=== PATIENT | female | born 1950 | race Caucasian/White ===

== ENCOUNTER → 2019-09-20 10:03 | Outpatient (BNVA) | payer MEDICARE, OTHER, SELFPAY | PROVIDERS: Family Provider Nurse Practitioner Family; PCP Nurse Practitioner; Visit Provider Nurse Practitioner | DX: G62.9 Polyneuropathy, unspecified (principal); I10 Essential (primary) hypertension; M19.079 Primary osteoarthritis, unspecified ankle and foot; E55.9 Vitamin D deficiency, unspecified; Z87.898 Personal history of other specified conditions; E03.9 Hypothyroidism, unspecified; E78.2 Mixed hyperlipidemia | CPT/HCPCS: 80053; 80061; 82306; 84443 ==

== ENCOUNTER → 2020-03-09 09:46 | Outpatient (BNVA) | payer MEDICARE, OTHER, SELFPAY | PROVIDERS: Family Provider Nurse Practitioner Family; PCP Nurse Practitioner; Visit Provider Nurse Practitioner | DX: E03.9 Hypothyroidism, unspecified (principal); E55.9 Vitamin D deficiency, unspecified; E78.2 Mixed hyperlipidemia | CPT/HCPCS: 80053; 80061; 82306; 84443; 85025 ==

== ENCOUNTER 2020-03-16 07:48 | Outpatient (CLI) | payer MEDICARE, OTHER, SELFPAY ==
--- NOTE | 2020-03-16 07:57 | MM_ITS ---
WS: [id number] BILATERAL DIGITAL SCREENING MAMMOGRAPHY WITH CAD CLINICAL INFORMATION: SCREENING HISTORY: Screening mammogram. No current complaints. COMPARISON: TECHNIQUE: Bilateral CC and MLO views. FINDINGS: Scattered fibroglandular densities bilaterally. No suspicious focal mass, asymmetry, calcifications, or architectural distortion. No evidence of malignancy. Vascular calcification. A few punctate calcif ications. MM/[place] [id number] IMPRESSION: BI-RADS: 2-Benign FOLLOW UP: 1 Year Follow-up Recommend return to annual screening mammography.
== END 2020-03-16 07:49 | disposition home or self-care (01) ==
LOC: RADSHAW 07:52
PROVIDERS: PCP Nurse Practitioner; Visit Provider Nurse Practitioner
DX: Z12.31 Encounter for screening mammogram for malignant neoplasm of breast (principal)
CPT/HCPCS: 77067

== ENCOUNTER → 2020-08-07 08:29 | Outpatient (BNVA) | payer MEDICARE, OTHER, SELFPAY | PROVIDERS: PCP Nurse Practitioner; Visit Provider Nurse Practitioner | DX: E03.9 Hypothyroidism, unspecified (principal); E78.2 Mixed hyperlipidemia; E55.9 Vitamin D deficiency, unspecified | CPT/HCPCS: 80053; 80061; 82306; 84443 ==

== ENCOUNTER → 2021-02-18 09:41 | Outpatient (BNVA) | payer MEDICARE, OTHER, SELFPAY | PROVIDERS: PCP Nurse Practitioner; Visit Provider Nurse Practitioner | DX: I10 Essential (primary) hypertension (principal); E03.9 Hypothyroidism, unspecified; E55.9 Vitamin D deficiency, unspecified; G62.9 Polyneuropathy, unspecified; M19.079 Primary osteoarthritis, unspecified ankle and foot; Z23 Encounter for immunization; E78.2 Mixed hyperlipidemia | CPT/HCPCS: 80053; 80061; 81000; 82306; 84443; 85025 ==

== ENCOUNTER → 2021-09-27 11:26 | Outpatient (BNVA) | payer MEDICARE, SELFPAY | PROVIDERS: PCP Nurse Practitioner; Visit Provider Nurse Practitioner | DX: M19.079 Primary osteoarthritis, unspecified ankle and foot (principal); G62.9 Polyneuropathy, unspecified; E55.9 Vitamin D deficiency, unspecified; I10 Essential (primary) hypertension; J45.909 Unspecified asthma, uncomplicated; E03.9 Hypothyroidism, unspecified | CPT/HCPCS: 80053; 80061; 84443; 85025 ==

== ENCOUNTER → 2022-05-10 09:25 | Outpatient (BNVA) | payer MEDICARE, OTHER, SELFPAY | PROVIDERS: PCP Nurse Practitioner; Visit Provider Nurse Practitioner | DX: M10.9 Gout, unspecified (principal); E03.9 Hypothyroidism, unspecified; E78.2 Mixed hyperlipidemia; E55.9 Vitamin D deficiency, unspecified; M19.079 Primary osteoarthritis, unspecified ankle and foot | CPT/HCPCS: 80053; 80061; 82306; 84443; 84550; 85025; 85651; 86140 ==

== ENCOUNTER 2022-06-09 12:10 | Outpatient (CLI) | payer MEDICARE, SELFPAY ==
--- NOTE | 2022-06-09 12:16 | MM_ITS ---
WS: [email or web address] BILATERAL SCREENING DIGITAL TOMOSYNTHESIS MAMMOGRAM WITH CAD HISTORY: Screening. COMPARISON: 03/16/2020 and 06/15/2018 Bilateral CC and MLO views with tomosynthesis and synthetic mammography submitted. Computer aided det ection analyzed. Breast composition: There are scattered areas of fibroglandular density. No suspicious masses, microc alcifications or architectural distortion. MM/[place] [id number] IMPRESSION: BI-RADS: 1-Negative FOLLOW UP: 1 Year Follow-up
--- NOTE | 2022-06-09 13:30 | XR_ITS ---
WS: [email or web address] SCREENING DEXA SCAN [facility] CLINICAL INFORMATION: Z78.0 - Asymptomatic menopausal state COMPARISON: None. FINDINGS: The L1-L4 bone mineral density measures 1.174 g/cm2. This corresponds to a T score score of -0.1 and Z score of 0.7. Left femoral neck bone mineral density measures 0.987 g/cm2. This corresponds to a T score of -0.2 an d Z score of 0.7. Right femoral neck bone mineral density measures 0.946 g/cm2. This corresponds to a T score -0.5of an d Z score of 0.4. Mean femoral neck bone mineral density measures 0.967 g/cm2. This corresponds to a T score of -0.3 an d Z score of 0.5. XR/XR DEXA axial skeleton* [id number] IMPRESSION: Normal bone mineralization. Patient's FRAX calculated 10 year probability for major osteoporotic fracture i s 7.9 % and osteoporotic hip fracture is 0.7%.
== END 2022-06-09 12:11 | disposition home or self-care (01) ==
LOC: RAD 12:10
PROVIDERS: PCP Nurse Practitioner; Visit Provider Nurse Practitioner
DX: Z12.31 Encounter for screening mammogram for malignant neoplasm of breast (principal); Z13.820 Encounter for screening for osteoporosis; Z78.0 Asymptomatic menopausal state
CPT/HCPCS: 77063; 77067; 77080; 80053; 80061; 82306; 84443; 84550; 85025; 85651; 86140

== ENCOUNTER 2022-07-08 08:29 | Outpatient (CLI) | payer MEDICARE, SELFPAY ==
--- NOTE | 2022-07-08 08:45 | USCV_ITS ---
Rowan Coleman Age: 71 Gender: F : 1950 Exam Date: 07/08/2022 08:52 Ordering Phys: Nadege Hernandez Technologist: [id number] Exam Location: [facility] – [place] Indication: MURMUR BP: 138 / 62 HR: 87 Rhythm: Sinus Technical Quality: Adequate MEASUREMENTS (Male / Female) Normal Values 2D ECHO LVOT Diameter 2.0 cm LV Ejection Fraction MOD 2C 69.6 % LV Ejection Fraction 2C AL 69.1 % LA Diameter 2.9 cm LA Width 3.3 cm LA Height 4.3 cm RA Width 2.8 cm RA Height 4.3 cm Aorta at Sinotubular Diameter 2.5 cm IVC Diameter 1.7 cm M-MODE Aortic Annulus Diameter 3.3 cm LA Ao Ratio MM 0.9 MV E Point Septal Separation 0.8 cm DOPPLER AV Peak Velocity 161.0 cm/s LVOT Peak Velocity 142.0 cm/s AV Area Cont Eq vti 3.8 cm squared AV Area Cont Eq pk 2.7 cm squared MV Peak Velocity 139.0 cm/s MV Area PHT 5.0 cm squared Mitral E to A Ratio 0.6 MV E' Velocity 45.0 cm/s Mitral E to MV E' Ratio 6.9 Mitral E to LV E' Lateral Ratio 6.6 Mitral E to LV E' Septal Ratio 7.3 TR Peak Velocity 178.0 cm/s TR Peak Gradient 12.7 mmHg TR Mean Velocity 141.6 cm/s TR Mean Gradient 8.6 mmHg TR Velocity Time Integral 42.5 cm TV Peak E Velocity 66.0 cm/s Right Atrial Pressure 3.0 mmHg Pulmonary Artery Systolic Pressu 15.7 mmHg PV Peak Velocity 147.0 cm/s RV Acceleration Time 0.2 s RV Ejection Time 0.3 s RV AcT/ET 0.6 FINDINGS Left Ventricle Normal left ventricular size and systolic function, EF 68 %. No regional wall motion abnormalities. Grade I/IV diastolic dysfunction (abnormal relaxation filling pattern), normal to mildly elevated filling pressures. Right Ventricle Possibly of normal size ejection fraction Right Atrium Could not be visualized well Left Atrium Possibly of normal size Mitral Valve No gross abnormalities noted Aortic Valve Thickened aortic valve. Mild aortic valve regurgitation. Tricuspid Valve Not visualized well Pulmonic Valve Pulmonic valve not well visualized. Pericardium No pericardial effusion. Aorta Normal aortic annulus size. IVC Normal inferior vena cava. CONCLUSIONS Normal left ventricular size and systolic function, EF 68 %. No regional wall motion abnormalities. Grade I/IV diastolic dysfunction (abnormal relaxation filling pattern), normal to mildly elevated filling pressures. Thickened aortic valve. Mild aortic valve regurgitation. Possibly normal chamber sizes. No intracardiac masses Thickened aortic No pericardial effusion. Suboptimal study because of poor ultrasonic window, apical. No similar previous studies are available for comparison Dr Hoda Weiss MD [facility] (Electronically Signed) Final Date: 08 July 2022 14:30 S
== END 2022-07-08 08:30 | disposition home or self-care (01) ==
PROVIDERS: PCP Nurse Practitioner; Visit Provider Nurse Practitioner
DX: R01.1 Cardiac murmur, unspecified (principal); I35.1 Nonrheumatic aortic (valve) insufficiency
CPT/HCPCS: 93306

== ENCOUNTER → 2022-11-02 11:10 | Outpatient (BNVA) | payer MEDICARE, SELFPAY | PROVIDERS: PCP Nurse Practitioner; Visit Provider Nurse Practitioner | DX: M54.6 Pain in thoracic spine (principal); M54.50 Low back pain, unspecified; M25.561 Pain in right knee; M25.562 Pain in left knee; E03.9 Hypothyroidism, unspecified; E55.9 Vitamin D deficiency, unspecified; I10 Essential (primary) hypertension | CPT/HCPCS: 72070; 72100; 73562; 80053; 80061; 82306; 82607; 83735; 84443; 85651; 86140 ==

== ENCOUNTER 2022-11-09 14:02 | Outpatient (CLI) | payer MEDICARE, SELFPAY ==
[2022-11-09 14:37] LABS: Basophils % 0.5 %; Eosinophils # 0.1 10^3/uL (0.0-0.8); Eosinophils % 2.2 %; Hemoglobin 11.9 g/dL (11.5-15.3); Lymphocytes # 1.8 10^3/uL (0.8-4.8); Lymphocytes % 28.6 %; Mean Corpuscular HGB Conc 29.8 g/dL (30.0-36.0); Mean Corpuscular Hemoglobin 24.2 pg (28.0-34.0); Mean Corpuscular Volume 81.5 fl (81-99); Mean Platelet Volume 10.3 fL (7.4-10.4); Monocytes # 0.8 10^3/uL (0.2-0.9); Neutrophils # 3.56 10^3/uL (1.8-7.7); Neutrophils % 56.4 %; Nucleated Red Blood Cells % 0 %; Platelet Count 290 10^3/cmm (130-400); Red Blood Count 4.91 10^6/uL (4.1-5.3); Red Cell Distribution Width 18.6 % (12.1-15.1); White Blood Count 6.3 10^3/uL (4.0-10.0)
[2022-11-09 15:04] LABS: Uric Acid 3.1 mg/dL (2.4-5.7)
[2022-11-10 11:20] LABS: COMPLEMENT COMPONENT C3C 137 mg/dL (83-193); COMPLEMENT COMPONENT C4C 24 mg/dL (15-57)
[2022-11-11 11:14] LABS: CENTROMERE B ANTIBODY <1.0 NEG AI (<1.0 NEG); JO-1 ANTIBODY <1.0 NEG AI (<1.0 NEG); RNP ANTIBODY <1.0 NEG AI (<1.0 NEG); SCL-70 ANTIBODY <1.0 NEG AI (<1.0 NEG); SJOGREN'S ANTIBODY (SS-A) <1.0 NEG AI (<1.0 NEG); SM ANTIBODY <1.0 NEG AI (<1.0 NEG); SS-B <1.0 NEG AI (<1.0 NEG)
[2022-11-11 13:15] LABS: COMPLEMENT, TOTAL (CH50) >60 U/mL (31-60)
[2022-11-11 15:29] LABS: ANA SCREEN, IFA NEGATIVE (NEGATIVE)
[2022-11-14 15:29] LABS: THYROID PEROXIDASE ANTIBODIES <1 IU/mL (<9)
[2022-12-01 00:08] LABS: DNA AB (DS) CRITHIDIA TITER 1:40 titer (<1:10); DNA AB (DS) CRITHIDIA,IFA POSITIVE (NEGATIVE)
== END 2022-11-09 14:03 | disposition home or self-care (01) ==
LOC: LAB 14:07
PROVIDERS: PCP Nurse Practitioner; Visit Provider Nurse Practitioner
DX: M19.079 Primary osteoarthritis, unspecified ankle and foot (principal); G62.9 Polyneuropathy, unspecified; M10.9 Gout, unspecified
CPT/HCPCS: 36415; 84550; 85025; 86160; 86162; 86235; 86255; 86376; 86431

== ENCOUNTER → 2023-02-22 09:42 | Outpatient (BNVA) | payer MEDICARE, SELFPAY | PROVIDERS: PCP Nurse Practitioner; Visit Provider Internal Medicine | DX: R76.8 Other specified abnormal immunological findings in serum (principal); W19.XXXA Unspecified fall, initial encounter; R21 Rash and other nonspecific skin eruption; G62.9 Polyneuropathy, unspecified; M54.50 Low back pain, unspecified; R93.5 Abnormal findings on diagnostic imaging of other abdominal regions, including retroperitoneum; F42.4 Excoriation (skin-picking) disorder; L40.9 Psoriasis, unspecified; M25.50 Pain in unspecified joint | CPT/HCPCS: 36415; 72202; 73120; 73620; 82550; 83520; 83735; 84100; 85651; 86140; 86200; 86480; 86704; 86803; 87340; 99204 ==

== ENCOUNTER → 2023-03-13 08:18 | Outpatient (BNVA) | payer MEDICARE, SELFPAY | PROVIDERS: PCP Nurse Practitioner; Visit Provider Psychiatry & Neurology Neurology | DX: G62.9 Polyneuropathy, unspecified (principal); M79.606 Pain in leg, unspecified; M54.9 Dorsalgia, unspecified; R26.89 Other abnormalities of gait and mobility | CPT/HCPCS: 36415; 82607; 82746; 83921; 86780; 99203 ==

== ENCOUNTER 2023-03-30 14:01 | Outpatient (CLI) | payer MEDICARE, SELFPAY ==
--- NOTE | 2023-03-30 14:30 | USCV_ITS ---
Rowan Coleman Age: 72 Gender: F : 1950 Exam Date: 03/30/2023 14:29 Ordering Phys: Be Fernandez MD Technologist: BRENT Exam Location: [facility] [place] Indication: Bruit Risk Factors: Previous Vascular Surgery: Right Brachial BP: / Left Brachial BP: / Right Left Velocity (cm/s) Spectral Plaque Velocity (cm/s) Spectral Plaque Syst/Diast Broadening Syst/Diast Broadening 87.10/ 17.60 Prox CCA 78.00 / 13.00 88.20/ 14.30 Mid CCA 71.80 / 13.50 79.40/ 18.70 Distal CCA 61.40 / 10.40 44.50/ 11.50 Prox ICA 61.80 / 18.90 70.60/ 15.40 Mid ICA 64.30 / 18.90 65.10/ 16.50 Distal ICA 76.30 / 21.40 86.00 ECA 87.10 0.80 ICA/CCA 0.98 Antegrade Vertebral Antegrade 61.50/ 11.10 cm/s 55.70/ 15.40 cm/s Tri Subclavian Tri 78.80 135.4 0 FINDINGS Comparison: none available. No significant elevation of systolic or diastolic velocities. Waveforms are normal. Minimal carotid atherosclerosis. Antegrade vertebral arteries. CONCLUSIONS Bilateral ICA stenosis less than 50%. Mnimal carotid atherosclerosis. Dr. Rosibel Hudson DO (Electronically Signed) Final Date: 30 March 2023 14:51 S
== END 2023-03-30 14:02 | disposition home or self-care (01) ==
LOC: RAD 14:02
PROVIDERS: PCP Nurse Practitioner; Visit Provider Psychiatry & Neurology Neurology
DX: R26.89 Other abnormalities of gait and mobility (principal); I65.23 Occlusion and stenosis of bilateral carotid arteries; R09.89 Other specified symptoms and signs involving the circulatory and respiratory systems; M79.605 Pain in left leg; M79.604 Pain in right leg; G62.9 Polyneuropathy, unspecified; M54.9 Dorsalgia, unspecified
CPT/HCPCS: 93880

== ENCOUNTER → 2023-04-19 09:44 | Outpatient (BNVA) | payer MEDICARE, SELFPAY | PROVIDERS: PCP Nurse Practitioner; Visit Provider Internal Medicine | DX: M19.079 Primary osteoarthritis, unspecified ankle and foot (principal); M05.9 Rheumatoid arthritis with rheumatoid factor, unspecified; W19.XXXA Unspecified fall, initial encounter; R21 Rash and other nonspecific skin eruption; G62.9 Polyneuropathy, unspecified; M54.50 Low back pain, unspecified; R93.5 Abnormal findings on diagnostic imaging of other abdominal regions, including retroperitoneum | CPT/HCPCS: 36415; 80053; 81003; 82533; 82550; 82784; 83516; 84100; 85025; 85651; 86140; 99214 ==

== ENCOUNTER 2023-05-02 14:11 | Outpatient (CLI) | payer MEDICARE, SELFPAY ==
--- NOTE | 2023-05-02 14:30 | MR_ITS ---
WS: [email or web address] MRI LUMBAR SPINE NONCONTRAST HISTORY: M54.50 - Low back pain, unspecified COMPARISON: None available. TECHNIQUE: Sagittal and axial multisequence imaging is submitted. Marked increase in thoracic kyphosis. Mild curvature lumbar spine. Posterior lumbar alignment is normal. Disc spaces are narrowed and desiccated. Small amount of fatty replacement along the endplates of L5 and S1. Conus terminates normally at L1-2 disc level. L1-L2: Mild annular disc bulging encroaching upon the ventral thecal sac. Ligamentum flavum and facet arthritis. Mild LEFT foramen narrowing. L2-L3: Mild annular disc bulging with mild ligamentum flavum and facet arthritis. No significant sten osis. L3-L4: Mild annular disc bulging with ligamentum flavum and facet arthritis. No stenosis. L4-L5: Central shallow disc protrusion with very slight encroachment upon the RIGHT traversing L5 ner ve root. Mild facet arthritis. No high-grade stenosis. L5-S1: Osteophytic ridging with a central disc osteophyte. There is very slight disc contact on the t raversing S1 nerve roots. Moderate facet arthritis. Paravertebral soft tissues are normal. IMPRESSION: 1. No high-grade central or foraminal stenosis. 2. L5-S1: Central disc osteophyte with mild contact on the traversing S1 nerve roots. No high-grade s tenosis. 3. L4-5: Mild disc encroachment and a shallow central disc protrusion. Mild contact on the traversing RIGHT L5 nerve root. 2. Mild LEFT foramen narrowing at L1-2.
== END 2023-05-02 14:12 | disposition home or self-care (01) ==
PROVIDERS: PCP Nurse Practitioner; Visit Provider Psychiatry & Neurology Neurology
DX: M54.50 Low back pain, unspecified (principal); G62.9 Polyneuropathy, unspecified; W19.XXXA Unspecified fall, initial encounter; M48.061 Spinal stenosis, lumbar region without neurogenic claudication; M25.78 Osteophyte, vertebrae
CPT/HCPCS: 72148

== ENCOUNTER → 2023-05-04 15:36 | Outpatient (BNVA) | payer MEDICARE, SELFPAY | PROVIDERS: PCP Nurse Practitioner; Visit Provider Nurse Practitioner | DX: M10.9 Gout, unspecified (principal); G62.9 Polyneuropathy, unspecified; I10 Essential (primary) hypertension; E03.9 Hypothyroidism, unspecified; M19.079 Primary osteoarthritis, unspecified ankle and foot | CPT/HCPCS: 80061; 84443 ==

== ENCOUNTER → 2023-06-27 14:17 | Outpatient (BNVA) | payer MEDICARE, SELFPAY | PROVIDERS: PCP Nurse Practitioner; Visit Provider Psychiatry & Neurology Neurology | DX: R51.9 Headache, unspecified (principal); R42 Dizziness and giddiness; R26.9 Unspecified abnormalities of gait and mobility | CPT/HCPCS: 99212 ==

== ENCOUNTER 2023-07-26 07:00 | Outpatient (CLI) | payer MEDICARE, SELFPAY ==
--- NOTE | 2023-07-26 08:36 | MR_ITS ---
WS: [email or web address] MRI BRAIN WITH AND WITHOUT CONTRAST HISTORY: R42 - Dizziness and giddiness COMPARISON: None available. TECHNIQUE: Multiplanar imaging performed through the brain with MultiHance 20 ml's IV. No acute infarcts are seen. Aguilar-white matter differentiation is well preserved. Mild small vessel is chemic disease in the periventricular white matter. Small vessel disease is symmetric. No infarct. Th ere is only very mild cerebral atrophy and volume loss. No susceptibility artifacts or prior lacunar infarcts. Ventricles and extra-axial spaces are normal. Clivus and pituitary gland are normal. Visualized posterior fossa and brainstem are also normal. Postcontrast images are negative for masses or vascular malformations. Patient is moving moderately o n this examination limiting evaluation for subtle lesions. I suspect there is probably a small venous angioma in the LEFT temporal lobe. Dural venous sinuses are normal. Paranasal sinuses: Well aerated with no significant disease. Mastoid air cells: Normal. Calvarium and scalp: Normal. IMPRESSION: 1. No acute infarct and no enhancing mass. The postcontrast imaging is somewhat limited by motion ar tifact. Patient was moving during the end of the examination. 2. Mild small vessel ischemic disease. 3. No prior hemorrhage. Minimal atrophy.
[2023-07-26] MEDS: gadobenate dimeglumine 20 mL vial IV (15:21)
== END 2023-07-26 23:00 | disposition home or self-care (01) ==
PROVIDERS: PCP Nurse Practitioner; Visit Provider Psychiatry & Neurology Neurology
DX: I67.82 Cerebral ischemia (principal)
CPT/HCPCS: 70553; A9577

== ENCOUNTER → 2023-08-10 09:03 | Outpatient (BNVA) | payer MEDICARE, SELFPAY | PROVIDERS: PCP Nurse Practitioner; Visit Provider Internal Medicine | DX: E27.9 Disorder of adrenal gland, unspecified (principal); R79.89 Other specified abnormal findings of blood chemistry; R26.9 Unspecified abnormalities of gait and mobility; R42 Dizziness and giddiness; E03.9 Hypothyroidism, unspecified; Z79.890 Hormone replacement therapy | CPT/HCPCS: 99204 ==

== ENCOUNTER → 2023-09-04 13:23 | Outpatient (BNVA) | payer MEDICARE, SELFPAY | PROVIDERS: PCP Nurse Practitioner; Visit Provider Psychiatry & Neurology Neurology | DX: R51.9 Headache, unspecified (principal); R42 Dizziness and giddiness; R26.9 Unspecified abnormalities of gait and mobility; M19.079 Primary osteoarthritis, unspecified ankle and foot; G62.9 Polyneuropathy, unspecified | CPT/HCPCS: 99212 ==

== ENCOUNTER → 2023-09-14 11:00 | Outpatient (BNVA) | payer MEDICARE, SELFPAY | PROVIDERS: PCP Nurse Practitioner; Visit Provider Podiatrist Foot & Ankle Surgery | DX: M79.2 Neuralgia and neuritis, unspecified | CPT/HCPCS: 73630 ==

== ENCOUNTER 2023-09-14 11:34 | Outpatient (CLI) | payer MEDICARE, SELFPAY ==
[2023-09-14 11:53] LABS: Basophils % 0.3 %; Eosinophils # 0.1 10^3/uL (0.0-0.8); Eosinophils % 1.3 %; Hematocrit 33.5 % (36-47); Lymphocytes # 0.6 10^3/uL (0.8-4.8); Lymphocytes % 14.8 %; Mean Corpuscular HGB Conc 30.4 g/dL (30-55); Mean Corpuscular Hemoglobin 24.2 pg (27-33); Mean Corpuscular Volume 79.4 fl (85-98); Mean Platelet Volume 9.9 fL (7.4-10.4); Monocytes # 0.6 10^3/uL (0.2-0.9); Monocytes % 15.6 %; Neutrophils % 67.7 %; Nucleated Red Blood Cells % 0 %; Platelet Count 198 10^3/cmm (157-399); Red Blood Count 4.22 10^6/uL (3.85-5.65); Red Cell Distribution Width 15.9 % (12.1-15.1); White Blood Count 3.98 10^3/uL (3.29-11.43)
[2023-09-14 12:22] LABS: Alanine Aminotransferase 31 U/L (0-33); Albumin Level 3.8 g/dL (3.5-5.2); Alkaline Phosphatase 124 U/L (35-105); Anion Gap 14.7 (5-19); Aspartate Amino Transferase 35 U/L (0-32); Blood Urea Nitrogen 10 mg/dL (8-23); Calcium 9.1 mg/dL (8.5-10.5); Carbon Dioxide 21 mmol/L (22-29); Chloride 108 mmol/L (98-107); Chol HDL Ratio 2.27 mg/dL (0.0-4.40); Cholesterol 179 mg/dL (0-200); Glucose 113 mg/dL (65-115); HDL Cholesterol 79 mg/dL (60-100); LDL Cholesterol Calculated 78 mg/dL (50-129); Osmolality Calculated 290 mOsm/kg (285-295); Potassium 3.7 mmol/L (3.5-5.1); Sodium 140 mmol/L (136-145); Thyroid Stimulating Hormone 1.04 uIU/mL (0.27-4.20); Total Bilirubin 0.2 mg/dL (0.15-1.2); Total Protein 6.8 g/dL (6.6-8.7); Triglycerides 112 mg/dL (0-150); VLDL Cholestrol Calculation 22 mg/dL (0-30)
== END 2023-09-14 11:35 | disposition home or self-care (01) ==
LOC: LAB 11:37
PROVIDERS: PCP Nurse Practitioner; Visit Provider Nurse Practitioner
DX: J45.909 Unspecified asthma, uncomplicated (principal); E03.9 Hypothyroidism, unspecified; E78.2 Mixed hyperlipidemia; M79.2 Neuralgia and neuritis, unspecified
CPT/HCPCS: 80053; 80061; 84443; 85025; 99203

== ENCOUNTER 2023-09-27 08:00 | Oncology outpatient (recurring) (ONCR) | payer MEDICARE, SELFPAY ==
[2023-09-27 08:10] VITALS: BP 138/76; PULSE 92; RESP 16; TEMP 36.4; O2SAT 98
[2023-09-27] MEDS: cosyntropin 0.25 mg SDV IVP (08:20)
[2023-09-27 08:58] LABS: Cosyntropin Baseline 21.56 mcg/dL
[2023-09-27 09:33] LABS: Cosyntropin 30 Minute 23.04 mcg/dL
[2023-09-27 09:37] VITALS: BP 122/70; PULSE 77; RESP 16; TEMP 36.6; O2SAT 99
[2023-09-27 10:14] LABS: Cosyntropin 1 Hour 25.73 mcg/dL
== END 2023-10-20 23:59 | disposition home or self-care (01) ==
LOC: ONCMED 08:01
PROVIDERS: PCP Nurse Practitioner; Visit Provider Internal Medicine
DX: R79.89 Other specified abnormal findings of blood chemistry (principal)
CPT/HCPCS: 36415; 82533; J0834

== ENCOUNTER → 2023-09-28 10:56 | Outpatient (BNVA) | payer MEDICARE, SELFPAY | PROVIDERS: PCP Nurse Practitioner; Visit Provider Internal Medicine | DX: R79.89 Other specified abnormal findings of blood chemistry (principal); R26.9 Unspecified abnormalities of gait and mobility; R42 Dizziness and giddiness | CPT/HCPCS: 99214 ==

== ENCOUNTER 2023-10-18 14:15 | Outpatient (CLI) | payer MEDICARE, SELFPAY ==
[2023-10-18 14:52] LABS: Basophils % 0.5 %; Eosinophils # 0.1 10^3/uL (0.0-0.8); Eosinophils % 1.9 %; Hematocrit 34.7 % (36-47); Lymphocytes # 1.5 10^3/uL (0.8-4.8); Lymphocytes % 24.1 %; Mean Corpuscular HGB Conc 29.7 g/dL (30-55); Mean Corpuscular Hemoglobin 24.3 pg (27-33); Mean Corpuscular Volume 81.8 fl (85-98); Mean Platelet Volume 9.9 fL (7.4-10.4); Monocytes # 0.8 10^3/uL (0.2-0.9); Monocytes % 13.2 %; Neutrophils # 3.82 10^3/uL (1.8-7.7); Neutrophils % 59.8 %; Nucleated Red Blood Cells % 0 %; Platelet Count 288 10^3/cmm (157-399); Red Blood Count 4.24 10^6/uL (3.85-5.65); Red Cell Distribution Width 17.4 % (12.1-15.1); White Blood Count 6.38 10^3/uL (3.29-11.43)
[2023-10-18 15:09] LABS: Alanine Aminotransferase 15 U/L (0-33); Albumin Level 4.2 g/dL (3.5-5.2); Alkaline Phosphatase 95 U/L (35-105); Aspartate Amino Transferase 18 U/L (0-32); Blood Urea Nitrogen 12 mg/dL (8-23); Calcium 8.9 mg/dL (8.5-10.5); Carbon Dioxide 26 mmol/L (22-29); Chloride 108 mmol/L (98-107); Globulin 2.8 g/dL (1.3-4.6); Glucose 106 mg/dL (65-115); Osmolality Calculated 294 mOsm/kg (285-295); Sodium 142 mmol/L (136-145); Total Bilirubin 0.3 mg/dL (0.15-1.2)
[2023-10-20 15:17] LABS: Iron 39 ug/dL (37-145); Percent Saturation 11.2 % (20-50); Total Iron Binding Capacity 346 mcg/dl; Unsaturated Iron Binding 307 ug/dL (112-347)
== END 2023-10-18 14:16 | disposition home or self-care (01) ==
LOC: LAB 14:17
PROVIDERS: PCP Nurse Practitioner; Visit Provider Nurse Practitioner
DX: M05.9 Rheumatoid arthritis with rheumatoid factor, unspecified (principal); D50.9 Iron deficiency anemia, unspecified
CPT/HCPCS: 80053; 85025

== ENCOUNTER 2023-10-20 12:48 | Outpatient (CLI) | payer MEDICARE, SELFPAY ==
--- NOTE | 2023-10-20 13:00 | MR_ITS ---
WS: [email or web address] MRI CERVICAL SPINE with and without contrast HISTORY: R51.9 - Headache, unspecified , LEFT upper extremity weakness and numbness. COMPARISON: None available. Technique: Multiplanar, multisequence noncontrast imaging of the cervical spine. Postcontrast imaging MultiHance 20 mL. Head is held in forward flexion due to the increase in upper thoracic kyphosis. Small vertebral body osteophytes and disc bulges. No fractures or marrow edema. Signal within the cervical cord is normal. Visualized posterior fossa is unremarkable. Craniocervical junction, C1 and C2 relationship, odontoid process and soft tissues are normal. C2-C3: Tiny central disc protrusion. No stenosis. C3-C4: Mild osteophytic ridging and disc bulging. No stenosis. C4-C5: Moderate osteophytic ridging and annular disc bulging. Moderate RIGHT and mild LEFT foraminal stenosis. C5-C6: Mild disc bulging. Small disc osteophyte complexes in the foramina. Mild bilateral foraminal s tenosis. Facet arthropathy is mild. C6-C7: Small bilateral foraminal osteophytes with mild foraminal stenosis. C7-T1: Normal. No discitis or osteomyelitis. No epidural abscess. No enhancing mass or nodules. MR/MR cervical spine wo/w [id number] IMPRESSION: 1. No acute fractures. 2. C4-5: Moderate RIGHT and mild LEFT foraminal stenosis due to disc osteophyt e disease. 3. Mild bilateral foraminal stenosis due to disc osteophyte disease at C5-6 an d C6-7. No high-grade central stenosis. 4. No discitis or osteomyelitis. No enhancing mass.
--- NOTE | 2023-10-20 13:45 | MR_ITS ---
WS: [email or web address] MRI THORACIC SPINE with and without HISTORY: R26.9 - Unspecified abnormalities of gait and mobility COMPARISON: None available. TECHNIQUE: Multiplanar sequences are performed in sagittal and axial planes. Postcontrast imaging sta tus post MultiHance. Marked increase in upper thoracic kyphosis. Disc spaces are slightly narrowed. Small amount of edema within the endplates of T5 and T6. No fracture. Benign hemangioma T2 and T12 Postcontrast images are negative. There is no discitis or osteomyelitis. No enhancement of the cord. The conus tapers normally at L1.. Signal within the cord is normal. Paravertebral soft tissues are normal. No focal disc protrusion or significant central or foraminal s tenosis. MR/MR thoracic spine wo/w [id number] IMPRESSION: 1. Marked increase in the upper thoracic kyphosis. 2. No significant central or foraminal stenosis. 3. Normal signal within the cord. 4. No discitis or osteomyelitis. No enhancing lesions.
[2023-10-20] MEDS: gadobenate dimeglumine 20 mL vial IV (14:14)
== END 2023-10-20 12:49 | disposition home or self-care (01) ==
PROVIDERS: PCP Nurse Practitioner; Visit Provider Psychiatry & Neurology Neurology
DX: R51.9 Headache, unspecified (principal); R42 Dizziness and giddiness; R26.9 Unspecified abnormalities of gait and mobility; G62.9 Polyneuropathy, unspecified
CPT/HCPCS: 72156; 72157; A9577

== ENCOUNTER → 2023-11-09 15:43 | Outpatient (BNVA) | payer MEDICARE, SELFPAY | PROVIDERS: PCP Nurse Practitioner; Visit Provider Orthopaedic Surgery | DX: M54.9 Dorsalgia, unspecified (principal); M48.062 Spinal stenosis, lumbar region with neurogenic claudication | CPT/HCPCS: 72110; 99204 ==

== ENCOUNTER 2023-11-29 12:07 | Outpatient (RCR) | payer MEDICARE, SELFPAY | END 2023-12-20 23:59 | disposition home or self-care (01) | LOC: SPT 12:07 | PROVIDERS: PCP Nurse Practitioner; Visit Provider Orthopaedic Surgery | DX: M54.9 Dorsalgia, unspecified (principal); G89.29 Other chronic pain | CPT/HCPCS: 97113; 97161 ==

== ENCOUNTER 2023-12-21 06:00 | Outpatient (RCR) | payer MEDICARE, SELFPAY | END 2024-01-20 23:59 | disposition home or self-care (01) | LOC: SPT 06:00 | PROVIDERS: PCP Nurse Practitioner; Visit Provider Orthopaedic Surgery | DX: M54.9 Dorsalgia, unspecified (principal); G89.29 Other chronic pain | CPT/HCPCS: 97110; 97113 ==

== ENCOUNTER 2023-12-26 13:08 | Outpatient (CLI) | payer MEDICARE, SELFPAY ==
[2023-12-26 14:16] LABS: Basophils % 0.6 %; Eosinophils # 0.1 10^3/uL (0.0-0.8); Eosinophils % 1.5 %; Hematocrit 37.1 % (36-47); Lymphocytes # 1.5 10^3/uL (0.8-4.8); Lymphocytes % 23.5 %; Mean Corpuscular HGB Conc 30.2 g/dL (30-55); Mean Corpuscular Hemoglobin 25.3 pg (27-33); Mean Corpuscular Volume 83.7 fl (85-98); Mean Platelet Volume 10.5 fL (7.4-10.4); Monocytes # 0.9 10^3/uL (0.2-0.9); Monocytes % 13.5 %; Neutrophils # 3.95 10^3/uL (1.8-7.7); Neutrophils % 60.4 %; Nucleated Red Blood Cells % 0 %; Platelet Count 258 10^3/cmm (157-399); Red Blood Count 4.43 10^6/uL (3.85-5.65); Red Cell Distribution Width 18.3 % (12.1-15.1); White Blood Count 6.54 10^3/uL (3.29-11.43)
[2023-12-26 14:28] LABS: Erythrocyte Sedimentation Rate 8 mm/hr (0-15)
[2023-12-26 14:38] LABS: Alanine Aminotransferase 16 U/L (0-33); Albumin Level 4.1 g/dL (3.5-5.2); Alkaline Phosphatase 105 U/L (35-105); Aspartate Amino Transferase 18 U/L (0-32); Blood Urea Nitrogen 14 mg/dL (8-23); C Reactive Protein 4.7 mg/L (0.0-4.9); Calcium 9.3 mg/dL (8.5-10.5); Carbon Dioxide 23 mmol/L (22-29); Chloride 103 mmol/L (98-107); Globulin 2.8 g/dL (1.3-4.6); Glucose 112 mg/dL (65-115); Iron 58 ug/dL (37-145); Osmolality Calculated 289 mOsm/kg (285-295); Percent Saturation 19.2 % (20-50); Sodium 139 mmol/L (136-145); Total Bilirubin 0.3 mg/dL (0.15-1.2); Total Iron Binding Capacity 302 mcg/dl; Total Protein 6.9 g/dL (6.6-8.7); Unsaturated Iron Binding 244 ug/dL (112-347)
== END 2023-12-26 13:09 | disposition home or self-care (01) ==
LOC: LAB 13:09
PROVIDERS: PCP Nurse Practitioner; Visit Provider Nurse Practitioner
DX: M06.00 Rheumatoid arthritis without rheumatoid factor, unspecified site (principal)
CPT/HCPCS: 36415; 80053; 83540; 83550; 85025; 85651; 86140

== ENCOUNTER → 2024-01-30 13:49 | Outpatient (BNVA) | payer MEDICARE, SELFPAY | PROVIDERS: PCP Nurse Practitioner; Visit Provider Psychiatry & Neurology Neurology | DX: M19.079 Primary osteoarthritis, unspecified ankle and foot (principal); S93.699A Other sprain of unspecified foot, initial encounter; R51.9 Headache, unspecified; R42 Dizziness and giddiness; R26.9 Unspecified abnormalities of gait and mobility; G62.9 Polyneuropathy, unspecified; M76.821 Posterior tibial tendinitis, right leg; X58.XXXA Exposure to other specified factors, initial encounter | CPT/HCPCS: 99212 ==

== ENCOUNTER → 2024-03-19 13:30 | Outpatient (BNVA) | payer MEDICARE, SELFPAY | PROVIDERS: PCP Nurse Practitioner; Visit Provider Internal Medicine Rheumatology | DX: M05.9 Rheumatoid arthritis with rheumatoid factor, unspecified; Z71.89 Other specified counseling | CPT/HCPCS: 99214 ==

== ENCOUNTER → 2024-03-20 11:04 | Outpatient (BNVA) | payer MEDICARE, SELFPAY | PROVIDERS: PCP Nurse Practitioner; Visit Provider Nurse Practitioner | DX: E55.9 Vitamin D deficiency, unspecified (principal); I10 Essential (primary) hypertension; E78.2 Mixed hyperlipidemia; E03.9 Hypothyroidism, unspecified | CPT/HCPCS: 80053; 80061; 82306; 84443; 85025 ==

== ENCOUNTER 2024-05-01 14:25 | Outpatient (CLI) | payer MEDICARE, SELFPAY ==
[2024-05-01 14:58] LABS: Basophils # 0.1 10^3/uL (0.0-0.1); Basophils % 0.6 %; Eosinophils # 0.1 10^3/uL (0.0-0.8); Eosinophils % 0.7 %; Hematocrit 42.5 % (36-47); Lymphocytes # 1.5 10^3/uL (0.8-4.8); Lymphocytes % 17.3 %; Mean Corpuscular Hemoglobin 28.6 pg (27-33); Mean Corpuscular Volume 89.5 fl (85-98); Mean Platelet Volume 10.3 fL (7.4-10.4); Monocytes % 10.8 %; Neutrophils # 6.22 10^3/uL (1.8-7.7); Neutrophils % 70.3 %; Nucleated Red Blood Cells % 0 %; Platelet Count 292 10^3/cmm (157-399); Red Blood Count 4.75 10^6/uL (3.85-5.65); White Blood Count 8.85 10^3/uL (3.29-11.43)
[2024-05-01 15:07] LABS: Erythrocyte Sedimentation Rate 15 mm/hr (0-15)
[2024-05-01 15:20] LABS: Alanine Aminotransferase 17 U/L (0-33); Albumin Level 4.4 g/dL (3.5-5.2); Alkaline Phosphatase 130 U/L (35-105); Aspartate Amino Transferase 21 U/L (0-32); C Reactive Protein 4.5 mg/L (0.0-4.9); Total Bilirubin 0.2 mg/dL (0.15-1.2); Total Protein 7.4 g/dL (6.6-8.7)
== END 2024-05-01 14:26 | disposition home or self-care (01) ==
LOC: LAB 14:27
PROVIDERS: PCP Nurse Practitioner; Visit Provider Internal Medicine Rheumatology
DX: M06.00 Rheumatoid arthritis without rheumatoid factor, unspecified site (principal)
CPT/HCPCS: 36415; 80076; 82565; 85025; 85651; 86140

== ENCOUNTER → 2024-05-30 10:56 | Outpatient (BNVA) | payer MEDICARE, SELFPAY | PROVIDERS: PCP Nurse Practitioner; Visit Provider Psychiatry & Neurology Neurology | DX: M76.821 Posterior tibial tendinitis, right leg; M19.079 Primary osteoarthritis, unspecified ankle and foot; S93.699A Other sprain of unspecified foot, initial encounter; R51.9 Headache, unspecified; R42 Dizziness and giddiness; R26.9 Unspecified abnormalities of gait and mobility; G62.9 Polyneuropathy, unspecified; I10 Essential (primary) hypertension; E55.9 Vitamin D deficiency, unspecified; E78.2 Mixed hyperlipidemia; E03.9 Hypothyroidism, unspecified; J45.909 Unspecified asthma, uncomplicated; F51.01 Primary insomnia; X58.XXXA Exposure to other specified factors, initial encounter | CPT/HCPCS: 99212 ==

== ENCOUNTER → 2024-06-18 13:17 | Outpatient (BNVA) | payer MEDICARE, SELFPAY | PROVIDERS: PCP Nurse Practitioner; Visit Provider Podiatrist Foot & Ankle Surgery | DX: M79.2 Neuralgia and neuritis, unspecified; M21.371 Foot drop, right foot | CPT/HCPCS: 99213 ==

== ENCOUNTER 2024-07-12 14:41 | Outpatient (CLI) | payer MEDICARE, SELFPAY ==
[2024-07-12 15:37] LABS: Basophils % 0.4 %; Eosinophils # 0.1 10^3/uL (0.0-0.8); Eosinophils % 0.7 %; Hematocrit 38.2 % (36-47); Lymphocytes # 1.2 10^3/uL (0.8-4.8); Lymphocytes % 12.6 %; Mean Corpuscular HGB Conc 31.7 g/dL (30-55); Mean Corpuscular Hemoglobin 28.7 pg (27-33); Mean Corpuscular Volume 90.5 fl (85-98); Mean Platelet Volume 10.2 fL (7.4-10.4); Monocytes # 0.6 10^3/uL (0.2-0.9); Monocytes % 6.1 %; Neutrophils # 7.78 10^3/uL (1.8-7.7); Neutrophils % 79.8 %; Nucleated Red Blood Cells % 0 %; Platelet Count 261 10^3/cmm (157-399); Red Blood Count 4.22 10^6/uL (3.85-5.65); Red Cell Distribution Width 13.8 % (12.1-15.1); White Blood Count 9.76 10^3/uL (3.29-11.43)
[2024-07-12 16:03] LABS: Erythrocyte Sedimentation Rate 23 mm/hr (0-15)
[2024-07-12 16:10] LABS: Alanine Aminotransferase 18 U/L (0-33); Albumin Level 4.1 g/dL (3.5-5.2); Alkaline Phosphatase 122 U/L (35-105); Aspartate Amino Transferase 18 U/L (0-32); Globulin 2.7 g/dL (1.3-4.6); Total Bilirubin 0.2 mg/dL (0.15-1.2); Total Protein 6.8 g/dL (6.6-8.7)
== END 2024-07-12 14:42 | disposition home or self-care (01) ==
LOC: LAB 14:42
PROVIDERS: PCP Nurse Practitioner; Visit Provider Internal Medicine Rheumatology
DX: M06.00 Rheumatoid arthritis without rheumatoid factor, unspecified site (principal)
CPT/HCPCS: 36415; 80076; 82565; 85025; 85651; 86140

== ENCOUNTER → 2024-07-16 14:11 | Outpatient (BNVA) | payer MEDICARE, SELFPAY | PROVIDERS: PCP Nurse Practitioner; Visit Provider Internal Medicine Rheumatology | DX: M06.00 Rheumatoid arthritis without rheumatoid factor, unspecified site (principal); Z79.899 Other long term (current) drug therapy; M05.9 Rheumatoid arthritis with rheumatoid factor, unspecified | CPT/HCPCS: 99214 ==

== ENCOUNTER 2024-08-30 14:39 | Outpatient (CLI) | payer MEDICARE, SELFPAY ==
[2024-08-30 14:56] LABS: Basophils # 0.1 10^3/uL (0.0-0.1); Basophils % 0.7 %; Eosinophils # 0.1 10^3/uL (0.0-0.8); Eosinophils % 1.3 %; Hematocrit 41.2 % (36-47); Lymphocytes # 1.8 10^3/uL (0.8-4.8); Lymphocytes % 25.8 %; Mean Corpuscular HGB Conc 31.1 g/dL (30-55); Mean Corpuscular Hemoglobin 27.5 pg (27-33); Mean Corpuscular Volume 88.4 fl (85-98); Monocytes # 1.1 10^3/uL (0.2-0.9); Monocytes % 15.5 %; Neutrophils # 3.93 10^3/uL (1.8-7.7); Neutrophils % 56.4 %; Nucleated Red Blood Cells % 0 %; Platelet Count 243 10^3/cmm (157-399); Red Blood Count 4.66 10^6/uL (3.85-5.65); Red Cell Distribution Width 14.6 % (12.1-15.1); White Blood Count 6.97 10^3/uL (3.29-11.43)
[2024-08-30 15:02] LABS: Erythrocyte Sedimentation Rate 28 mm/hr (0-15)
[2024-08-30 15:18] LABS: Alanine Aminotransferase 28 U/L (0-33); Alkaline Phosphatase 113 U/L (35-105); Aspartate Amino Transferase 20 U/L (0-32); Globulin 2.7 g/dL (1.3-4.6); Total Bilirubin 0.2 mg/dL (0.15-1.2); Total Protein 6.7 g/dL (6.6-8.7)
== END 2024-08-30 14:40 | disposition home or self-care (01) ==
LOC: LAB 14:41
PROVIDERS: PCP Nurse Practitioner; Visit Provider Internal Medicine Rheumatology
DX: M06.00 Rheumatoid arthritis without rheumatoid factor, unspecified site (principal); Z79.899 Other long term (current) drug therapy
CPT/HCPCS: 36415; 80076; 82565; 85025; 85651; 86140

== ENCOUNTER 2024-09-10 14:49 | Outpatient (CLI) | payer MEDICARE, SELFPAY ==
[2024-09-10 16:26] LABS: Hepatitis C Virus Antibody Non-Reactive (Nonreactive)
[2024-09-10 16:36] LABS: Hepatitis B Core AB, Total Non-Reactive (Nonreactive); Hepatitis B Surface Antigen Non-Reactive (Nonreactive)
== END 2024-09-10 14:50 | disposition home or self-care (01) ==
PROVIDERS: PCP Nurse Practitioner; Visit Provider Internal Medicine Rheumatology
DX: Z79.899 Other long term (current) drug therapy (principal)
CPT/HCPCS: 36415; 86480; 86704; 86803; 87340

== ENCOUNTER 2024-09-24 13:51 | Outpatient (CLI) | payer MEDICARE, SELFPAY ==
--- NOTE | 2024-09-24 14:00 | MM_ITS ---
WS: [email or web address] BILATERAL 3D TOMOSYNTHESIS DIGITAL SCREENING MAMMOGRAPHY WITH CAD CLINICAL INFORMATION: Z12.31 - Encounter for screening mammogram for malignant ... HISTORY: Screening mammogram. No current complaints. COMPARISON: 2022 TECHNIQUE: Bilateral CC and MLO views. FINDINGS: Scattered fibroglandular densities bilaterally. 4.4 mm nodule anterior RIGHT breast near the 12 o'clock position. Recommend RIGHT breast diagnostic mammography and ultrasound if persistent. Unremarkable LEFT breast. MM/MM [facility] tomosynthesis [id number] IMPRESSION: DENSITY: There are scattered areas of fibroglandular density. BI-RADS: 0 - Incomplete: Need additional imaging evaluation. FOLLOW UP: Need Additional Imaging Recommend RIGHT breast diagnostic mammography and ultrasound if persistent.
[2024-09-24 15:28] LABS: 25 Hydroxy Vitamin D 50 ng/mL (30-100); Alanine Aminotransferase 22 U/L (0-33); Albumin Level 4.2 g/dL (3.5-5.2); Alkaline Phosphatase 105 U/L (35-105); Anion Gap 18.2 (5-19); Aspartate Amino Transferase 27 U/L (0-32); Blood Urea Nitrogen 12 mg/dL (8-23); Calcium 9.5 mg/dL (8.5-10.5); Carbon Dioxide 21 mmol/L (22-29); Chloride 105 mmol/L (98-107); Chol HDL Ratio 3.03 mg/dL (0.0-4.40); Cholesterol 233 mg/dL (0-200); Globulin 2.8 g/dL (1.3-4.6); Glucose 104 mg/dL (65-115); HDL Cholesterol 77 mg/dL (60-100); LDL Cholesterol Calculated 112 mg/dL (50-129); Magnesium 2.1 mg/dL (1.7-2.3); Osmolality Calculated 290 mOsm/kg (285-295); Potassium 4.2 mmol/L (3.5-5.1); Sodium 140 mmol/L (136-145); Thyroid Stimulating Hormone 1.37 uIU/mL (0.27-4.20); Total Bilirubin 0.3 mg/dL (0.15-1.2); Triglycerides 220 mg/dL (0-150); Uric Acid 2.8 mg/dL (2.4-5.7); VLDL Cholestrol Calculation 44 mg/dL (0-30); Vitamin B12 340 pg/mL (232-1245)
== END 2024-09-24 13:52 | disposition home or self-care (01) ==
LOC: RAD 13:53
PROVIDERS: PCP Nurse Practitioner; Visit Provider Nurse Practitioner
DX: Z12.31 Encounter for screening mammogram for malignant neoplasm of breast (principal); E78.2 Mixed hyperlipidemia; E03.9 Hypothyroidism, unspecified; E55.9 Vitamin D deficiency, unspecified; M10.9 Gout, unspecified; R92.323 Mammographic fibroglandular density, bilateral breasts; N63.15 Unspecified lump in the right breast, overlapping quadrants
CPT/HCPCS: 36415; 77063; 77067; 80053; 80061; 82306; 82607; 83735; 84443; 84550

== ENCOUNTER → 2024-09-30 15:06 | Outpatient (BNVA) | payer MEDICARE, SELFPAY | PROVIDERS: PCP Nurse Practitioner; Visit Provider Psychiatry & Neurology Neurology | DX: M19.079 Primary osteoarthritis, unspecified ankle and foot (principal); R42 Dizziness and giddiness; R26.9 Unspecified abnormalities of gait and mobility; G62.9 Polyneuropathy, unspecified; M76.821 Posterior tibial tendinitis, right leg; G43.909 Migraine, unspecified, not intractable, without status migrainosus; H52.11 Myopia, right eye; H49.01 Third [oculomotor] nerve palsy, right eye; I10 Essential (primary) hypertension; E55.9 Vitamin D deficiency, unspecified; E78.2 Mixed hyperlipidemia; E03.9 Hypothyroidism, unspecified; J45.909 Unspecified asthma, uncomplicated; F51.01 Primary insomnia | CPT/HCPCS: 99212 ==

== ENCOUNTER 2024-10-03 14:18 | Outpatient (CLI) | payer MEDICARE, SELFPAY ==
--- NOTE | 2024-10-03 14:30 | MM_ITS ---
WS: [email or web address] RIGHT 3D TOMOSYNTHESIS DIGITAL MAMMOGRAPHY WITH CAD CLINICAL INFORMATION: R92.8 - Other abnormal and inconclusive findings on diagn... HISTORY: Additional views TECHNIQUE: 2 views of the right breast were obtained. FINDINGS: Scattered fibroglandular densities of the right breast.. Previously described 4 mm nodule partially compresses out on the spot compression views. Ultrasound described below. ULTRASOUND BREAST RIGHT TECHNIQUE: Ultrasound right breast focused area of concern. CLINICAL INFORMATION: R92.8 - Other abnormal and inconclusive findings on diagn... FINDINGS: Ultrasound RIGHT breast at the 12 o'clock position. Dense underlying parenchymal tissue. No cystic or solid lesions. No suspicious lesions to target for biopsy. MM/MM diag RT tomosynthesis [id number] IMPRESSION: DENSITY: There are scattered areas of fibroglandular density. BI-RADS: 2 - Benign. FOLLOW UP: 1 Year Follow-up Recommend return to annual screening mammography.
--- NOTE | 2024-10-03 15:00 | US_ITS ---
WS: [email or web address] RIGHT 3D TOMOSYNTHESIS DIGITAL MAMMOGRAPHY WITH CAD CLINICAL INFORMATION: R92.8 - Other abnormal and inconclusive findings on diagn... HISTORY: Additional views TECHNIQUE: 2 views of the right breast were obtained. FINDINGS: Scattered fibroglandular densities of the right breast.. Previously described 4 mm nodule partially compresses out on the spot compression views. Ultrasound described below. ULTRASOUND BREAST RIGHT TECHNIQUE: Ultrasound right breast focused area of concern. CLINICAL INFORMATION: R92.8 - Other abnormal and inconclusive findings on diagn... FINDINGS: Ultrasound RIGHT breast at the 12 o'clock position. Dense underlying parenchymal tissue. No cystic or solid lesions. No suspicious lesions to target for biopsy. US/US breast RT limited* [id number] IMPRESSION: DENSITY: There are scattered areas of fibroglandular density. BI-RADS: 2 - Benign. FOLLOW UP: 1 Year Follow-up Recommend return to annual screening mammography.
== END 2024-10-03 14:19 | disposition home or self-care (01) ==
LOC: RAD 14:20
PROVIDERS: PCP Nurse Practitioner; Visit Provider Nurse Practitioner
DX: R92.8 Other abnormal and inconclusive findings on diagnostic imaging of breast (principal); R92.321 Mammographic fibroglandular density, right breast
CPT/HCPCS: 76642; 77061; G0279

== ENCOUNTER 2024-10-04 12:49 | Outpatient (CLI) | payer MEDICARE, SELFPAY ==
[2024-10-04 13:30] LABS: Bilirubin Urine Negative (Negative); Blood Urine Negative (Negative); Glucose Urine UA Negative (Normal); Ketones Urine Negative (Negative); Leukocyte Esterase Urine 3+ (Negative); Nitrate Urine Positive (Negative); Protein Urine Negative (Negative); Specific Gravity, Urine 1.008 (1.005-1.030); Urine Appearance Clear (CLEAR); Urine Color Yellow (Yellow)
[2024-10-04 14:03] LABS: Add Urine Microscopic? YES; Bacteria Urine 4+ /hpf; RBC Urine 0-2 /hpf (0-2); Squamous Epithelial Cell Urine 0-5 /hpf (0-5); WBC Urine 51-100 /hpf (0-5)
[2024-10-04 14:13] LABS: Add Urine Culture? Yes
== END 2024-10-04 12:50 | disposition home or self-care (01) ==
PROVIDERS: PCP Nurse Practitioner; Visit Provider Nurse Practitioner
DX: I10 Essential (primary) hypertension (principal)
CPT/HCPCS: 81001; 87086

== ENCOUNTER → 2024-10-22 13:02 | Outpatient (BNVA) | payer MEDICARE, SELFPAY | PROVIDERS: PCP Nurse Practitioner; Visit Provider Internal Medicine Rheumatology | DX: M05.9 Rheumatoid arthritis with rheumatoid factor, unspecified (principal) | CPT/HCPCS: 99214 ==

== ENCOUNTER 2024-10-25 10:44 | Outpatient (CLI) | payer MEDICARE, SELFPAY ==
--- NOTE | 2024-10-25 11:00 | MR_ITS ---
WS: [email or web address] MRI BRAIN AND ORBITS WITHOUT CONTRAST. COMPARISON: 07/26/2023 Multiplanar, multisequence imaging is performed without contrast. No diffusion imaging abnormalities. Mild cerebral cerebellar atrophy. Moderate T2 and FLAIR signal hyperintensities throughout the supratentorial white matter. No large territory infarct. No areas of hemorrhage. Mild hippocampal atrophy. Ventricles are mildly enlarged on the basis of central and peripheral atrophy. No abnormality at the cerebellopontine angles. Symmetric appearance of the orbits and globes. There is significant motion artifact which is limiting evaluation of the orbits and globes. There is no large mass or mass effect. Optic nerves are difficult to visualize adequately but they appear symmetric. No mass effect on the optic chiasm or pituitary infundibulum. No sinus or mastoid air cell disease. MR/MR head orbits wo con [id number] IMPRESSION: 1. MRI is compromised by motion artifact. 2. Symmetric appearance of the orbits and globes but otherwise limited evaluat ion. 3. No mass effect or deviation of the optic chiasm. 4. Mild cerebral and cerebellar atrophy and hippocampal atrophy. 5. Moderate small vessel changes.
== END 2024-10-25 10:45 | disposition home or self-care (01) ==
PROVIDERS: PCP Nurse Practitioner; Visit Provider Psychiatry & Neurology Neurology
DX: G43.909 Migraine, unspecified, not intractable, without status migrainosus (principal)
CPT/HCPCS: 70336; 70551

== ENCOUNTER → 2024-12-17 15:50 | Outpatient (BNVA) | payer MEDICARE, SELFPAY | PROVIDERS: PCP Nurse Practitioner; Visit Provider Nurse Practitioner | DX: I10 Essential (primary) hypertension (principal); E55.9 Vitamin D deficiency, unspecified; E78.2 Mixed hyperlipidemia; E03.9 Hypothyroidism, unspecified | CPT/HCPCS: 80053; 80061; 82306; 82607; 83735; 84443; 85025 ==

== ENCOUNTER → 2024-12-26 08:19 | Outpatient (BNVA) | payer MEDICARE, SELFPAY | PROVIDERS: PCP Nurse Practitioner; Visit Provider Internal Medicine Cardiovascular Disease | DX: R06.09 Other forms of dyspnea (principal); I49.8 Other specified cardiac arrhythmias; I49.3 Ventricular premature depolarization; I47.10 Supraventricular tachycardia, unspecified; I49.1 Atrial premature depolarization | CPT/HCPCS: 93242 ==

== ENCOUNTER → 2025-01-08 11:23 | Outpatient (BNVA) | payer MEDICARE, SELFPAY | PROVIDERS: PCP Nurse Practitioner; Visit Provider Internal Medicine Rheumatology | DX: M05.9 Rheumatoid arthritis with rheumatoid factor, unspecified (principal) | CPT/HCPCS: 99214 ==

== ENCOUNTER 2025-02-14 09:12 | Outpatient (CLI) | payer MEDICARE, SELFPAY ==
--- NOTE | 2025-02-14 09:22 | XR_ITS ---
WS: [email or web address] Exam: XR hip LT 2-3V wo/w pel* [id number] Date/Time of Exam: 02/14/2025 9:22 AM Reason For Exam: R30.0 - Dysuria No acute fracture. The joint compartments relatively well-maintained. Mild DJD of the acetabular rim. Normal soft tissues. XR/XR hip LT 2-3V wo/w pel* [id number] IMPRESSION: 1. Minimal DJD.
--- NOTE | 2025-02-14 09:22 | XR_ITS ---
WS: [email or web address] Exam: XR lumbar spine 2-3V* [id number] Date/Time of Exam: 02/14/2025 9:22 AM Reason For Exam: R30.0 - Dysuria DLP: Comparison 11/09/2023 There is a low-grade compression fracture of the upper plate of L4 with about 10% loss of vertebral height and no posterior displacement. Fracture age is indeterminant but has occurred since 11/09/2023. No other fractures. Moderately advanced disc degeneration at L1-2, L2-3, L3-4, and L5-S1. Facet arthropathy from L4-S1. Minimal levoscoliosis. Prominent eggshell type calcification seen in the mid LEFT abdomen is unchanged since the last exam. XR/XR lumbar spine 2-3V* [id number] IMPRESSION: 1. Low-grade nondisplaced compression fracture of the upper plate of L4 has occ urred since the prior study. Fracture age indeterminant. 2. Moderate degenerative changes and slight scoliosis.
[2025-02-14 10:00] LABS: Hematocrit 42.2 % (36-47); Hemoglobin 13.00 g/dL (11.27-16.99); Mean Corpuscular HGB Conc 30.8 g/dL (30-55); Mean Corpuscular Hemoglobin 27.9 pg (27-33); Mean Corpuscular Volume 90.6 fl (85-98); Nucleated Red Blood Cells % 0 %; Platelet Count 237 10^3/cmm (157-399); Red Blood Count 4.66 10^6/uL (3.85-5.65); White Blood Count 8.72 10^3/uL (3.29-11.43)
[2025-02-14 10:03] LABS: Glucose Urine UA Negative (Normal); Nitrate Urine Negative (Negative); Specific Gravity, Urine 1.018 (1.005-1.030)
[2025-02-14 10:08] LABS: Add Urine Microscopic? YES
[2025-02-14 10:22] LABS: UA Slide Review UA Slide Review Perf
[2025-02-14 10:34] LABS: Alanine Aminotransferase 17 U/L (0-33); Albumin Level 3.9 g/dL (3.5-5.2); Alkaline Phosphatase 77 U/L (35-105); Aspartate Amino Transferase 16 U/L (0-32); Globulin 2.8 g/dL (1.3-4.6); Thyroid Stimulating Hormone 2.01 uIU/mL (0.27-4.20); Total Protein 6.7 g/dL (6.6-8.7)
== END 2025-02-14 09:13 | disposition home or self-care (01) ==
PROVIDERS: Internal Medicine Rheumatology; PCP Nurse Practitioner; Visit Provider Nurse Practitioner
DX: R30.0 Dysuria (principal); M54.50 Low back pain, unspecified; M79.605 Pain in left leg; E03.9 Hypothyroidism, unspecified; Z79.899 Other long term (current) drug therapy; S32.040S Wedge compression fracture of fourth lumbar vertebra, sequela; X58.XXXS Exposure to other specified factors, sequela; M41.80 Other forms of scoliosis, site unspecified; M24.852 Other specific joint derangements of left hip, not elsewhere classified
CPT/HCPCS: 36415; 72100; 73502; 80076; 81001; 82565; 84443; 85025; 85651; 86140

== ENCOUNTER 2025-02-20 14:40 | Outpatient (CLI) | payer MEDICARE, SELFPAY ==
--- NOTE | 2025-02-20 15:30 | XR_ITS ---
WS: [email or web address] SCREENING DEXA SCAN [facility] CLINICAL INFORMATION: S32.000A - Wedge compression fracture of unspecified lumb... COMPARISON: 2022 FINDINGS: The L1-L4 bone mineral density measures 1.049 g/cm2. This corresponds to a T score score of -1.1 and Z score of -0.2. Left femoral neck bone mineral density measures 0.909 g/cm2. This corresponds to a T score of -0.8 and Z score of 0.3. Right femoral neck bone mineral density measures 0.847 g/cm2. This corresponds to a T score -1.3of and Z score of -0.2. Mean femoral neck bone mineral density measures 0.878 g/cm2. This corresponds to a T score of -1.0 and Z score of 0.0. XR/XR DEXA axial skeleton* [id number] IMPRESSION: Osteopenia lumbar spine. Osteopenia femoral necks. Patient's FRAX calculated 10 year probability for major osteoporotic fracture i s 33.2% and osteoporotic hip fracture is 8.6%. Bone density lumbar spine decrease -10.6% Bone density femoral necks decrease -9.2%
== END 2025-02-20 14:41 | disposition home or self-care (01) ==
LOC: RAD 14:43
PROVIDERS: PCP Nurse Practitioner; Visit Provider Nurse Practitioner
DX: Z13.820 Encounter for screening for osteoporosis (principal); S32.000A Wedge compression fracture of unspecified lumbar vertebra, initial encounter for closed fracture; X58.XXXA Exposure to other specified factors, initial encounter; Z79.52 Long term (current) use of systemic steroids; M85.89 Other specified disorders of bone density and structure, multiple sites
CPT/HCPCS: 77080

== ENCOUNTER 2025-02-25 06:06 | Outpatient (CLI) | payer MEDICARE, SELFPAY ==
--- NOTE | 2025-02-25 06:15 | USCV_ITS ---
Rowan Coleman Age: 74 Gender: F : 1950 Exam Date: 02/25/2025 06:24 Ordering Phys: Nadege Hernandez Technologist: Exam Location: [facility] [place]ication: cp sob BP: 130 / 87 HR: 79 Rhythm: Sinus Technical Quality: Adequate MEASUREMENTS (Male / Female) Normal Values 2D ECHO LV Diastolic Diameter PLAX 4.2 cm 4.2 - 5.9 / 3.9 - 5.3 cm IVS Diastolic Thickness 1.2 cm 0.6 - 1.0 / 0.6 - 0.9 cm IVS Systolic Thickness 1.3 cm LVPW Diastolic Thickness 1.1 cm 0.6 - 1.0 / 0.6 - 0.9 cm LVPW Systolic Thickness 1.8 cm LVOT Diameter 2.1 cm LV Ejection Fraction 2D Teich 66.4 % LV Ejection Fraction MOD 4C 54.5 % LV Ejection Fraction MOD 2C 62.0 % LV Ejection Fraction 2C AL 62.1 % LA Diameter 3.7 cm RA Systolic Volume 4C AL 35.5 ml RA Systolic Volume 4C MOD 33.9 ml Aorta at Sinotubular Diameter 3.0 cm M-MODE LA Ao Ratio MM 1.2 AV Cusp Separation MM 2.3 cm DOPPLER AV Peak Velocity 130.0 cm/s LVOT Peak Velocity 89.0 cm/s AV Area Cont Eq vti 2.3 cm squared AV Area Cont Eq pk 2.3 cm squared MV Peak Velocity 127.0 cm/s MV Area PHT 5.4 cm squared Mitral E to A Ratio 0.8 TR Peak Velocity 188.0 cm/s TR Peak Gradient 14.1 mmHg PV Peak Velocity 85.0 cm/s FINDINGS Left Ventricle Normal left ventricular size, systolic function and wall thickness, with no regional wall motion abnormalities. Left ventricular ejection fraction is estimated at 60 %. Grade I/IV diastolic dysfunction (abnormal relaxation filling pattern), normal to mildly elevated filling pressures. Right Ventricle Normal right ventricular size and systolic function. Right Atrium Normal right atrial size. Left Atrium Normal left atrial size. IA Septum Normal appearance of the interatrial septum. Mitral Valve Moderately thickened mitral valve. Mild mitral annular calcification. No mitral valve stenosis. Mild mitral valve regurgitation. Aortic Valve Moderate aortic valve calcification. No aortic valve stenosis. Mild aortic valve regurgitation. Tricuspid Valve Normal tricuspid valve structure. No tricuspid valve stenosis or regurgitation. Normal pulmonary pressure. Pulmonic Valve Normal pulmonic valve structure. No pulmonic valve stenosis or regurgitation. Pericardium No pericardial effusion. Aorta Normal diameter of the aortic root and ascending thoracic aorta. IVC Normal IVC diameter. CONCLUSIONS Normal left ventricular size, systolic function and wall thickness, with no regional wall motion abnormalities. Left ventricular ejection fraction is estimated at 60 %. Grade I/IV diastolic dysfunction (abnormal relaxation filling pattern), normal to mildly elevated filling pressures. Moderately thickened mitral valve. Mild mitral annular calcification. No mitral valve stenosis. Mild mitral valve regurgitation. Moderate aortic valve calcification. No aortic valve stenosis. Mild aortic valve regurgitation. There is no pericardial effusion. Right atrial pressure is around 5 mm of mercury. Juan Pablo Schwartz MD (Electronically Signed) Final Date: 25 February 2025 14:48 S
== END 2025-02-25 06:07 | disposition home or self-care (01) ==
LOC: RAD 06:10
PROVIDERS: PCP Nurse Practitioner; Visit Provider Nurse Practitioner
DX: I10 Essential (primary) hypertension (principal); I50.30 Unspecified diastolic (congestive) heart failure; I34.81 Nonrheumatic mitral (valve) annulus calcification; I35.8 Other nonrheumatic aortic valve disorders; I35.1 Nonrheumatic aortic (valve) insufficiency
CPT/HCPCS: 93306

== ENCOUNTER → 2025-02-27 14:06 | Outpatient (BNVA) | payer MEDICARE, SELFPAY | PROVIDERS: PCP Nurse Practitioner; Visit Provider Orthopaedic Surgery | DX: S32.040A Wedge compression fracture of fourth lumbar vertebra, initial encounter for closed fracture (principal); W19.XXXA Unspecified fall, initial encounter; M79.605 Pain in left leg | CPT/HCPCS: 72100; 99213 ==

== ENCOUNTER → 2025-03-04 10:37 | Outpatient (BNVA) | payer MEDICARE, SELFPAY | PROVIDERS: PCP Nurse Practitioner; Visit Provider Internal Medicine Cardiovascular Disease | DX: I49.3 Ventricular premature depolarization (principal); I10 Essential (primary) hypertension; E78.2 Mixed hyperlipidemia; R07.9 Chest pain, unspecified | CPT/HCPCS: 93005; 99204 ==

== ENCOUNTER 2025-03-05 15:28 | Outpatient (CLI) | payer MEDICARE, SELFPAY ==
--- NOTE | 2025-03-05 16:00 | MR_ITS ---
WS: [email or web address] MRI LUMBAR SPINE NONCONTRAST TECHNIQUE: Sagittal T1, T2 and STIR imaging. Axial T1 and T2 imaging. CLINICAL INFORMATION: Lumbar back pain COMPARISON: 2022 FINDINGS: Mild lumbar curve. No acute compression. Mild chronic compression superior endplate L4 with endplate Schmorl's node. Disc space narrowing worse at L1-2 L2- 3 and L5-S1 with endplate degenerative changes. L1-L2: Mild disc bulging. Narrowing LEFT subarticular recess. Mild LEFT foraminal narrowing with mild facet arthropathy. L2-L3: Mild annular bulging. Narrowing of the subarticular recess bilaterally. Mild LEFT foraminal narrowing. Mild facet arthropathy. L3-L4: Mild disc bulge with impingement of the subarticular recess bilaterally. Mild central canal stenosis has progressed. Mild facet arthropathy. Mild LEFT foraminal narrowing. L4-L5: Mild disc bulging with a shallow central protrusion. Impingement of the subarticular recess LEFT greater than RIGHT slightly progressed compared to previous. Foramen are patent. Moderate facet arthropathy. L5-S1: Disc osteophyte complex with slight impingement of traversing LEFT S1 nerve root. Foramen are patent. Mild facet arthropathy. Visualized pelvic bony structures: Normal. Paravertebral soft tissues: Normal. MR/MR lumbar spine wo con* [id number] IMPRESSION: 1. Mild compression superior end plate L4 with fatty marrow changes. No edema. This has a chronic appearance but is new since 2022 MRI. 2. Mild central canal stenosis L3-4 with narrowing of the subarticular recess bilaterally has progressed. 3. Annular bulging L4-5 with slight narrowing of the subarticular recess bilat erally LEFT greater than RIGHT. This is slightly progressed compared to previou s. 4. Disc osteophyte complex L5-S1 slightly impinges the traversing LEFT greater than RIGHT S1 nerve roots.
== END 2025-03-05 15:29 | disposition home or self-care (01) ==
LOC: RAD 15:29
PROVIDERS: PCP Nurse Practitioner; Visit Provider Orthopaedic Surgery
DX: S32.000A Wedge compression fracture of unspecified lumbar vertebra, initial encounter for closed fracture (principal); M51.360 Other intervertebral disc degeneration, lumbar region with discogenic back pain only; M47.897 Other spondylosis, lumbosacral region; M25.78 Osteophyte, vertebrae; X58.XXXA Exposure to other specified factors, initial encounter
CPT/HCPCS: 72148

== ENCOUNTER → 2025-03-18 10:22 | Outpatient (BNVA) | payer MEDICARE, SELFPAY | PROVIDERS: PCP Nurse Practitioner; Visit Provider Orthopaedic Surgery | DX: M48.062 Spinal stenosis, lumbar region with neurogenic claudication (principal); M79.605 Pain in left leg; Z09 Encounter for follow-up examination after completed treatment for conditions other than malignant neoplasm | CPT/HCPCS: 99214 ==

== ENCOUNTER 2025-03-21 09:16 | Outpatient (CLI) | payer MEDICARE, SELFPAY ==
--- NOTE | 2025-03-21 | ECG_ITS ---
[facility] Test Date: 2025-03-21 Pat Name: Rowan Coleman Department: Room: Gender: Female Temporary Administrative Assistant: : 1950 Requested By: Pawel Lazo Order Number: [id number] John MD: Pawel Lazo M.D. Interpretive Statements Procedure: A total of 0.4 mg of Lexiscan was infused over 20 seconds. The stress phase was continued for a total of 5 minutes. Sestamibi was injected 20 seconds after the Lexiscan infusion. Findings:The patient's blood pressure at rest was 145/63 mmHg with a heart rate of 83 bpm. The resting EKG showed normal sinus rhythm with low voltage and poor R wave progression. An old anterior infarction cannot be excluded. After Lexiscan injection the patient's blood pressure gradually decreased to a low of 115/59 and the heart rate had no significant change. there were frequent PVCs at rest that improved during the stress test and resumed in recovery. There were no ST-T wave changes consistent with inducible ischemia. Conclusion: 1. Normal EKG response to Lexiscan infusion with no evidence of inducible ischemia. 2. No Lexiscan induced chest pain 3. Normal blood pressure and heart rate response. 4. Nuclear myocardial perfusion scan pending; see separate report. 5. Frequent premature ventricular contractions at baseline that improved during the stress test and resumed in recovery. Electronically Signed On 03-21-2025 16:30:31 CDT by Pawel Lazo M.D. [email or web address]
[2025-03-21 09:26] VITALS: BMI 31.3
--- NOTE | 2025-03-21 09:32 | NMCV_ITS ---
NM connie perf SPECT r/s* [id number] Rowan Coleman Age: 74 Gender: F : 1950 Exam Date: 03/21/2025 10:20 Ordering Phys: Pawel Lazo MD ([email or web address]) Technologist: LANCE Chaudhry Exam Location: [facility] Indications: cp STRESS TEST Please see separate stress test report in [facility] for full findings IMAGE PROTOCOL Rest/Stress 1 Lexiscan Day Radiopharmaceutical Dose (mCi) Administration Site Administered by Rest: Tc-99m 11 IV Jessica Rivera, [employer] HEL[employer] Sestamibi Stress:Tc-99m 32.4 IV Jessica Woodarde, MET[employer] B[employer]ING HELPER Sestamibi Rest: 21-Mar-2025 60 Discovery 630 Stress: 21-Mar-2025 30 Discovery 630 0.4mg Lexiscan. Images obtained in supine and prone position. SPECT RESULTS Technical Quality: Good Raw Data Analysis: Normal Image Corrections: No attenuation or motion correction applied Summed Stress Score: 0 Summed Rest Score: 0 Summed Difference Score: 0 PERFUSION FINDINGS SPECT images demonstrate homogeneous tracer distribution throughout the myocardium. FUNCTIONAL RESULTS (calculated via Gated SPECT) Stress Image LV EF (%): 75 Stress EDV (mL):93 TID: 1.09 Stress ESV (mL):23 FUNCTIONAL FINDINGS: There is normal left ventricular systolic function. IMPRESSIONS Myocardial perfusion imaging is normal with no infarction or ischemia. There is normal left ventricular systolic function, EF 75%. Pawel Lazo MD, FACC (Electronically Signed) Final Date: 21 March 2025 15:48 S
[2025-03-21 11:06] VITALS: BP 134/59; PULSE 81
== END 2025-03-21 09:17 | disposition home or self-care (01) ==
LOC: CDL 09:18
PROVIDERS: PCP Nurse Practitioner; Visit Provider Internal Medicine Cardiovascular Disease
DX: R07.9 Chest pain, unspecified (principal)
CPT/HCPCS: 36415; 78452; 93017; 96374; A9500; J2785

== ENCOUNTER → 2025-03-31 14:43 | Outpatient (BNVA) | payer MEDICARE, SELFPAY | PROVIDERS: PCP Nurse Practitioner; Referring Provider Orthopaedic Surgery; Visit Provider Anesthesiology Pain Medicine | DX: M79.18 Myalgia, other site (principal); M47.816 Spondylosis without myelopathy or radiculopathy, lumbar region; M16.12 Unilateral primary osteoarthritis, left hip; M79.605 Pain in left leg | CPT/HCPCS: 20553; 99205; J1010; J3490 ==

== ENCOUNTER → 2025-04-15 09:42 | Outpatient (BNVA) | payer MEDICARE, SELFPAY | PROVIDERS: PCP Nurse Practitioner; Visit Provider Internal Medicine Cardiovascular Disease | DX: E78.2 Mixed hyperlipidemia (principal); I10 Essential (primary) hypertension; I49.3 Ventricular premature depolarization; I35.2 Nonrheumatic aortic (valve) stenosis with insufficiency | CPT/HCPCS: 99214 ==

== ENCOUNTER → 2025-04-28 14:48 | Outpatient (BNVA) | payer MEDICARE, SELFPAY | PROVIDERS: PCP Nurse Practitioner; Visit Provider Anesthesiology Pain Medicine | DX: M47.816 Spondylosis without myelopathy or radiculopathy, lumbar region (principal); M16.12 Unilateral primary osteoarthritis, left hip; M79.605 Pain in left leg | CPT/HCPCS: 99214 ==

== ENCOUNTER → 2025-04-30 14:23 | Outpatient (BNVA) | payer MEDICARE, SELFPAY | PROVIDERS: PCP Nurse Practitioner; Visit Provider Anesthesiology Pain Medicine | DX: M16.9 Osteoarthritis of hip, unspecified (principal) | CPT/HCPCS: 77002; J1010; J3490; J9999 ==